=== PATIENT | female | born 1950 | race Caucasian/White ===

== ENCOUNTER 2022-06-11 10:14 | Emergency (ER) | payer MEDICARE, BC, SELFPAY ==
[2022-06-11] VITALS (7 sets, daily range): BP systolic 151–156; BP diastolic 71–87; PULSE 61–89; RESP 16; TEMP 36.2; O2SAT 97–100; BMI 24.6
--- NOTE | 2022-06-11 10:52 | CRLHL7_ITS ---
For Patients: As a result of the Century Cures Act, medical imaging exams and procedure reports are released immediately into your electronic medical record. You may view this report before your referring provider. If you have questions, please contact your health care provider. INDICATION: Shortness of breath. COMPARISON: None. TECHNIQUE: Two view chest radiograph. FINDINGS: The cardiomediastinal contours, lungs and pleural spaces are within normal limits. There is some biapical pleural scarring. IMPRESSION: No acute cardiopulmonary abnormality. Dictated by Jasiel Bob MD @ 06/11/2022 11:07:49 AM (Electronically Signed)
[2022-06-11 11:12] LABS: Lactate* 1.2 mmol/L (0.5-1.9)
[2022-06-11 11:14] LABS: Basophils Absolute Auto 0.02 K/uL (0.00-0.30); Basophils Percent Auto 0.4 % (0.0-3.0); Eosinophils Percent Auto 1.8 % (0.0-7.0); Hematocrit 43.6 % (33.0-51.0); Hemoglobin* 14.3 gm/dL (12.0-16.0); Lymphocytes Absolute Auto 1.19 K/uL (0.90-2.90); Mean Corpuscular HGB Conc 33 gm/dL (32-36); Mean Corpuscular Hemoglobin 32 pg (26-34); Mean Corpuscular Volume 98 fL (80-100); Monocytes Percent Auto 8.3 % (0.0-11.0); Neutrophils Absolute Auto 3.65 K/uL (1.7-7.0); Neutrophils Percent Auto 67.5 % (42.0-72.0); Platelet Count* 212 K/uL (140-440); RDW Coefficient of Variation % 11.8 % (11.5-15.5); Red Blood Count 4.45 m/uL (4.00-5.20); White Blood Count* 5.41 K/uL (4.50-11.00)
[2022-06-11 11:16] LABS: Slide Review Reflex No
--- NOTE | 2022-06-11 11:24 | ED.GENADULT ---
HPI - General Adult General Chief complaint: Chest Pain Stated complaint: Heart palpitations Time Seen by Provider: 06/11/22 10:41 Source: patient Mode of arrival: ambulatory Limitations: no limitations History of Present Illness HPI narrative: Patient is a 72-year-old female coming in today complaining palpitations going on for about 6 days. She states that several times per day, perhaps 5-10 or so times, she feels her heart pound for several beats. This catches her off guard and causes her anxiety. She does not become dizzy or diaphoretic. No syncopal episodes. No chest pain. No recent illness including fevers or chills. She is not coughing. She denies any changes in hair skin. No changes in her appetite. She has been sleeping well at night. She does state that the last 2 years of her life have been very stressful and filled with grief. She takes Claritin for allergies, has no other known medical problems. She had a bunionectomy many years ago and no other surgeries. She does not smoke. Grandfather had congestive heart failure. Related Data Home Medications Medication Instructions Recorded Confirmed [id number], herbs cap PO 06/06/22 06/06/22 capsule loratadine 10 mg tablet (Claritin) 10 mg PO QDAY 06/06/22 06/06/22 Allergies Allergy/AdvReac Type Severity Reaction Status Date / Time No Known Drug Allergies Allergy Verified 06/11/22 09:39 Review of Systems Status of ROS: Reports: 10 or more systems reviewed and unremarkable except as noted in History and below PFSH PFS Social History Smoking Status: Never smoker Do you use any of these nicotine containing products: None Second hand tobacco smoke exposure: No How often do you have a drink containing alcohol: never How often do you have six or more drinks on one occasion: Never AUDIT-C Alcohol total score: 0 Non-prescribed substance use: denies use service: No Exam Narrative: Exam Narrative: Well-nourished well-developed patient in no acute distress but does appear quite anxious. Alert and oriented x3. Answers questions appropriately. Mood and affect are appropriate. Thoughts are goal oriented and rational. No tangential or magical thinking noted. Patient speaks in full sentences without needing to catch her breath. HEENT: Normocephalic atraumatic. Pupils are equally round reactive to light. Extraocular muscles are intact. Conjunctivae are moist without any icterus noted. Moist mucous membranes. Posterior pharynx is normal. Neck is soft without any lymphadenopathy or thyromegaly. No masses are appreciated. Cardiovascular: Heart is regular rate and rhythm S1 and S2 are present without any murmurs. Lungs: Clear to auscultation bilaterally no wheezes rhonchi or rales are appreciated. Patient takes deep breaths without any discomfort. Abdomen: Soft and nontender nondistended with normal bowel sounds. No guarding or rebound. No masses or organomegaly appreciated. Extremities: Bilateral lower extremities are without edema. Normal DP and PT pulses. Skin: Well perfused without any obvious rashes. Const: Vital Signs, click to edit/add: Vital Signs - 24 hr 06/11/22 10:30 06/11/22 10:51 06/11/22 10:49 Temperature 97.2 F L Pulse Rate 88 Pulse Rate [Left P ulse Oximeter] 89 Respiratory Rate 16 Blood Pressure Blood Pressure [Le ft Upper Arm] 151/87 H Pulse Oximetry 100 98 99 Oxygen Delivery Me thod Room Air 06/11/22 11:03 06/11/22 11:15 06/11/22 11:30 Temperature Pulse Rate 86 75 65 Pulse Rate [Left P ulse Oximeter] Respiratory Rate Blood Pressure Blood Pressure [Le ft Upper Arm] Pulse Oximetry 97 98 99 Oxygen Delivery Me thod 06/11/22 11:31 Temperature Pulse Rate 61 Pulse Rate [Left P ulse Oximeter] Respiratory Rate Blood Pressure 156/71 H Blood Pressure [Le ft Upper Arm] Pulse Oximetry 99 Oxygen Delivery Me thod Course Course Hospital Course: IV established and labs were drawn. Patient was placed on a heart monitor. Lab work was unremarkable aside from minimally elevated LFTs. EKG was done in the Urgent Care and reviewed in the ED, showing sinus tachycardia with a pulse of 104. Patient stated that during her time here she may have felt palpitations once, I did review her entire cardiac strip and did not find any abnormalities. Her pulse did come down from 104 on that initial EKG into the 70s where it stayed consistently. Chest x-ray, read by me, did not show any acute abnormalities. Vital Signs Vital signs: Initial Vital Signs Respiratory Effort Normal 06/11/22 10:20 Respiratory Depth Normal 06/11/22 10:20 Vital Signs Temperature 97.2 F L 06/11/22 10:30 Pulse Rate 89 06/11/22 10:30 Respiratory Rate 16 06/11/22 10:30 Blood Pressure 151/87 H 06/11/22 10:30 Pulse Oximetry 100 06/11/22 10:30 Oxygen Delivery Method Room Air 06/11/22 10:30 Temperature 97.2 F L 06/11/22 10:30 Pulse Rate 61 06/11/22 11:31 Respiratory Rate 16 06/11/22 10:30 Blood Pressure 156/71 H 06/11/22 11:31 Pulse Oximetry 99 06/11/22 11:31 Oxygen Delivery Method Room Air 06/11/22 10:30 Medical Decision Making MDM Narrative Medical decision making narrative: 72-year-old female with palpitations of unclear etiology. Given that this occurs multiple times per day patient will be sent home on a 24 hour Holter monitor. If she becomes symptomatic I recommend she return to the ER. Patient was agreeable with everything we discussed had no other questions. Lab Data Lab results reviewed: Yes I reviewed the patient's lab results Labs: Lab Results 06/11/22 Range/Units 10:52 WBC 5.41 (4.50-11.00) K/uL RBC 4.45 (4.00-5.20) m/uL Hgb 14.3 (12.0-16.0) gm/dL Hct 43.6 (33.0-51.0) % MCV 98 (80-100) fL MCH 32 (26-34) pg MCHC 33 (32-36) gm/dL RDW Coeff of [place] 11.8 (11.5-15.5) % Plt Count 212 (140-440) K/uL Neut % (Auto) 67.5 (42.0-72.0) % Lymph % (Auto) 22.0 (20-44) % Mineral % (Auto) 8.3 (0.0-11.0) % Eos % (Auto) 1.8 (0.0-7.0) % Baso % (Auto) 0.4 (0.0-3.0) % Neut # (Auto) 3.65 (1.7-7.0) K/uL Lymph # (Auto) 1.19 (0.90-2.90) K/uL Mineral # (Auto) 0.40 (0.00-0.90) K/UL Eos # (Auto) 0.10 (0.00-0.50) K/uL Baso # (Auto) 0.02 (0.00-0.30) K/uL Sodium 137 (135-149) mmol/L Potassium 4.0 (3.6-5.1) mmol/L Chloride 106 (96-114) mmol/L Carbon Dioxide 24 (20-32) mmol/L BUN 15 (7-30) mg/dL Creatinine 0.9 (0.5-1.5) mg/dL Estimated Creat Clear 38.37 Estimated GFR 68 ml/min Glucose 125 H (60-115) mg/dL Lactate 1.2 (0.5-1.9) mmol/L Calcium 9.5 (8.4-10.6) mg/dL Total Bilirubin 0.4 (0.1-1.5) mg/dL Direct Bilirubin 0.2 (0.0-0.5) mg/dL AST 36 H (12-35) U/L ALT 48 H (4-35) U/L Alkaline Phosphatase 69 (40-150) U/L Troponin I < 0.01 L (0.01-0.04) ng/mL C-Reactive Protein 0.6 (0.5-1.0) mg/dL Total Protein 7.6 (6.0-8.3) g/dL Albumin 4.2 (3.3-5.0) g/dL TSH 1.820 (0.270-4.20) uIU/mL Imaging Data Chest x-ray: Attestation: I have reviewed the pertinent imaging results. Radiologist's impression: Two view chest radiograph. FINDINGS: The cardiomediastinal contours, lungs and pleural spaces are within normal limits. There is some biapical pleural scarring. IMPRESSION: No acute cardiopulmonary abnormality. ECG Data Attestation: I personally reviewed and interpreted this ECG as follows: Discharge Plan Discharge Clinical Impression: Heart palpitations Patient Disposition: Home, Self-Care Condition: Stable Additional Instructions: Follow-up with your primary care provider to go over results of your heart monitor. If you develop chest pain, fainting spells, vomiting or generally worsening symptoms, return to the ER. Prescriptions: No Action loratadine [Claritin] 10 mg tablet 10 mg PO QDAY [id number], herbs Capsule PO Follow Up/Referrals: Deedee Ryan MD [Primary Care Provider] - Stand Alone Forms: [employer] Info Instructions
[2022-06-11 11:29] LABS: Albumin* 4.2 g/dL (3.3-5.0); Chloride* 106 mmol/L (96-114); Sodium* 137 mmol/L (135-149)
[2022-06-11 11:32] LABS: Alkaline Phosphatase* 69 U/L (40-150); Aspartate Amino Transferase* 36 U/L (12-35); Bilirubin Direct* 0.2 mg/dL (0.0-0.5); Bilirubin Total* 0.4 mg/dL (0.1-1.5); Carbon Dioxide* 24 mmol/L (20-32); Creatinine* 0.9 mg/dL (0.5-1.5); Est. Creatinine Clearance* 38.37; Estimated Glomerular Filt Rate 68 ml/min; Total Protein* 7.6 g/dL (6.0-8.3)
[2022-06-11 11:33] LABS: Alanine Aminotransferase* 48 U/L (4-35); Blood Urea Nitrogen* 15 mg/dL (7-30); Calcium* 9.5 mg/dL (8.4-10.6); Glucose* 125 mg/dL (60-115)
[2022-06-11 11:35] LABS: C Reactive Protein* 0.6 mg/dL (0.5-1.0)
[2022-06-11 11:45] LABS: Troponin I* < 0.01 ng/mL (0.01-0.04)
== END 2022-06-11 13:22 | disposition home or self-care (01) ==
PROVIDERS: Emergency Provider Family Medicine; PCP Family Medicine
DX: R00.2 Palpitations (principal)
CPT/HCPCS: 36415; 71046; 80048; 80076; 83605; 84443; 84484; 85025; 86140; 93005; 93225; 93226; 94761; 99284; 99285